=== PATIENT | male | born 1995 | race Caucasian/White ===

== ENCOUNTER 2023-01-27 23:51 | Inpatient (IN) | payer BC, OTHER ==
[~2023-01-27] VITALS: Ht 177.8 cm; Wt 99.2 kg
[2023-01-28] VITALS (7 sets, daily range): BP systolic 95–117; BP diastolic 43–68; PULSE 64–72; RESP 12–20; TEMP 97.3–97.7; O2SAT 91–98
[2023-01-28 00:54] LABS: Urine Bacteria NONE SEEN /hpf (None Seen); Urine Blood Negative /uL (Negative); Urine Clarity Clear (Clear); Urine Color Yellow (Yellow); Urine Protein, UAD Negative (Negative); Urine Urobilinogen Normal (Negative); Urine WBC <1 /hpf (0 - 3)
[2023-01-28 01:07] LABS: Basophils # (auto) 0 10 ^3/uL (0-0.2); Basophils % (auto) 0.2 % (0.0-2.0); Eosinophils # (auto) 0 10 ^3/uL (0-0.8); Eosinophils % (auto) 0.1 % (0.0-7.0); Hematocrit 45.1 % (41.0-53.0); Hemoglobin 15.4 g/dL (13.5-17.5); Lymphocytes % (auto) 15.4 % (10.0-50.0); Mean Corpuscular Hemoglobin 29.3 pg (28.0-32.0); Mean Corpuscular Hgb Conc. 34.2 g/dL (32.0-36.0); Mean Corpuscular Volume 85.7 fL (80.0-100.0); Monocytes # (auto) 0.6 10 ^3/uL (0-1.3); Monocytes % (auto) 8.3 % (0.0-12.0); Neutrophils # (auto) 5.1 10 ^3/uL (1.6-8.6); Nucleated Red Blood Cells % 0.1 %; Red Blood Cells 5.26 10^6/uL (4.5-5.90); White Blood Cell 6.7 10^3/uL (4.4-10.8)
[2023-01-28 01:23] LABS: Alanine Aminotransferase 23 U/L (7-40); Albumin 4.7 g/dL (3.2-4.8); Alkaline Phosphatase 66 U/L (46-116); Anion Gap 4.9 (5-15); Aspartate Aminotransferase 22 U/L (13-40); Blood Urea Nitrogen 10 mg/dL (9-23); Calcium 9.5 mg/dL (8.7-10.4); Carbon Dioxide 29.1 mmol/L (20-30); Chloride 102 mmol/L (98-107); Glucose 115 mg/dL (74-106); Lipase 45 U/L (12-53); Potassium 3.7 mmol/L (3.5-5.1); Sodium 136 mmol/L (136-145)
[2023-01-28 01:24] LABS: Bilirubin, Total 0.9 mg/dL (0.2-1.0); Total Protein 7.5 g/dL (5.7-8.2)
[2023-01-28] MEDS ORDERED: SODIUM CHLORIDE 0.9% 1,000 ML IVB ONE (01:30)
[2023-01-28] MEDS ORDERED: PIPERACILLIN-TAZOB 3.375GM 100 ML IV ONE (01:30)
[2023-01-28] MEDS: ONDANSETRON HCL 4 MG/2 ML VIAL IV ONE ×2 (01:36→03:40)
[2023-01-28] MEDS: MORPHINE SULFATE 4 MG/ML SYR/VIAL IV ONE ×2 (01:36→03:39)
[2023-01-28 01:42] LABS: INR 1.1 (0.9-1.15); Partial Thromboplastin Time 28.4 SEC (24.5-34.5); Prothrombin Time 11.5 sec (9.3-11.8)
[2023-01-28] MEDS ORDERED: PANTOPRAZOLE 40 MG/10 ML VIAL INJ IV ONE (03:00)
[2023-01-28] MEDS ORDERED: LIDOCAINE W/ EPINEPHRINE 1% 20ML VIAL ONE (08:48)
[2023-01-28] MEDS ORDERED: BUPIVACAINE 0.25% INJ 50ML VIAL ONE (08:48)
[2023-01-28] MEDS ORDERED: CELECOXIB 100 MG CAP PO ONE (09:00)
[2023-01-28] MEDS ORDERED: ACETAMINOPHEN IV 1000 MG/100ML (10MG/ML) IV ONE (09:00)
[2023-01-28] MEDS ORDERED: GABAPENTIN 300 MG CAP PO ONE (09:00)
[2023-01-28] MEDS ORDERED: GLYCOPYRROLATE 0.2 MG/ML 1ML VIAL ONE (09:03)
[2023-01-28] MEDS ORDERED: ROCURONIUM 10MG/ML 10ML VIAL IV ONE (09:03)
[2023-01-28] MEDS ORDERED: PROPOFOL 10 MG/ML 20 ML IV ONE (09:04)
[2023-01-28] MEDS ORDERED: LIDOCAINE 2% (LOCAL ANESTH.) PF 5ml SDV ONE (09:04)
[2023-01-28] MEDS ORDERED: ONDANSETRON HCL 4 MG/2 ML VIAL ONE (09:04)
[2023-01-28] MEDS ORDERED: DexAMETHasone SOD PHOS 10MG/1ML VIAL INJ ONE (09:04)
[2023-01-28] MEDS ORDERED: KETOROLAC TROMETH 30 MG/ML 1ML VIAL ONE (09:04)
[2023-01-28] MEDS ORDERED: fentaNYL CITRATE 100 MCG/2 ML VL ONE (09:05)
[2023-01-28] MEDS ORDERED: SUGAMMADEX 200mg/2ml Vial (100MG/ML) IV ONE (09:05)
[2023-01-28] MEDS ORDERED: CELECOXIB 100 MG CAP ONE (09:09)
[2023-01-28] MEDS ORDERED: ACETAMINOPHEN IV 100 ML IV ONE (09:09)
[2023-01-28] MEDS ORDERED: GABAPENTIN 300 MG CAP ONE (09:09)
[2023-01-28] MEDS ORDERED: metroNIDAZOLE 500MG/100ML 100 ML IV ONE ×2 (09:25→10:15)
[2023-01-28] MEDS ORDERED: ceFAZolin 2 GM/D5W100ml 100 ML IV ONE (10:15)
[2023-01-28] MEDS ORDERED: MORPHINE SULFATE INJ 2 MG/ml SYRG IM ONE (10:15)
[2023-01-28] MEDS ORDERED: D5W/SOD CHL 0.45%/KCL 20MEQ 1,000 ML IV ONE (10:15)
[2023-01-28] MEDS ORDERED: HYDROmorphone HCL 2 MG/ML VL/or syr IV PRN (10:45)
[2023-01-28] MEDS ORDERED: hydrALAZINE HCL 20 MG/ML VL IV PRN (10:45)
[2023-01-28] MEDS ORDERED: ONDANSETRON HCL 4 MG/2 ML VIAL IV PRN (10:45)
[2023-01-28] MEDS ORDERED: FLUMAZENIL 0.1 MG/ML INJ 10ML MDV IV PRN (10:45)
[2023-01-28] MEDS ORDERED: NALOXONE HCL 0.4 MG/ML VIAL IV PRN (10:45)
[2023-01-28] MEDS ORDERED: oxyCODONE HCL 5MG TAB PO PRN (10:45)
[2023-01-28] MEDS ORDERED: ePHEDrine SULFATE 50 MG/ML AMP IV PRN (10:45)
[2023-01-28] MEDS ORDERED: LABETALOL HCL 5 MG/ML 4ML SYRINGE IV PRN (10:45)
[2023-01-28] MEDS ORDERED: fentaNYL CITRATE 100 MCG/2 ML VL IV PRN (10:45)
[2023-01-28] MEDS ORDERED: ACETAMINOPHEN 500 MG TAB PO PRN (14:00)
[2023-01-28] MEDS ORDERED: SODIUM CHLORIDE 0.9% 1,000 ML IV ONE (14:00)
[2023-01-28] MEDS ORDERED: MORPHINE SULFATE INJ 2 MG/ml SYRG IV PRN (14:00)
[2023-01-28] MEDS: metroNIDAZOLE 500MG/100ML 100 ML IV SCH ×2 (14:00→22:07)
[2023-01-28] MEDS ORDERED: HYDROcodone-ACET 5/325MG TAB PO PRN (14:00)
[2023-01-28] MEDS ORDERED: LANS30CA58 PO (14:37)
[2023-01-29 05:00] VITALS: BP 97/40; PULSE 53; RESP 18; TEMP 97.9; O2SAT 92
[2023-01-29] MEDS: metroNIDAZOLE 500MG/100ML 100 ML IV SCH (05:30)
[2023-01-29 07:43] LABS: Basophils # (auto) 0 10 ^3/uL (0-0.2); Basophils % (auto) 0.2 % (0.0-2.0); Eosinophils # (auto) 0 10 ^3/uL (0-0.8); Hematocrit 37.8 % (41.0-53.0); Hemoglobin 13.3 g/dL (13.5-17.5); Lymphocytes # (auto) 1.1 10 ^3/uL (0.4-5.4); Lymphocytes % (auto) 13.6 % (10.0-50.0); Mean Corpuscular Hemoglobin 29.7 pg (28.0-32.0); Mean Corpuscular Hgb Conc. 35.1 g/dL (32.0-36.0); Mean Corpuscular Volume 84.6 fL (80.0-100.0); Monocytes # (auto) 0.8 10 ^3/uL (0-1.3); Monocytes % (auto) 10.2 % (0.0-12.0); Neutrophils # (auto) 6.2 10 ^3/uL (1.6-8.6); Nucleated Red Blood Cells % 0.1 %; Red Blood Cells 4.47 10^6/uL (4.5-5.90); Red Cell Distribution Width 13.2 % (11.8-14.3); White Blood Cell 8.2 10^3/uL (4.4-10.8)
[2023-01-29 08:34] VITALS: BP 110/62; PULSE 63; RESP 16; TEMP 97.8; O2SAT 95
[2023-01-29] MEDS ORDERED: cefTRIAXone 1GM/50ML D5W 50 ML IV SCH (09:00)
[2023-01-29] MEDS ORDERED: CEPH500T PO (10:56)
[2023-01-29] MEDS ORDERED: DOCU-94 PO (10:56)
[2023-01-29] MEDS ORDERED: TRAM50TA2 PO (10:56)
[2023-01-29 11:12] LABS: Chloride 107 mmol/L (98-107); Potassium 4.2 mmol/L (3.5-5.1); Sodium 139 mmol/L (136-145)
[2023-01-29 11:13] LABS: Anion Gap 6.5 (5-15); Carbon Dioxide 25.5 mmol/L (20-30)
[2023-01-29 11:14] LABS: Calcium 8.9 mg/dL (8.5-10.1)
[2023-01-29 11:18] LABS: BUN/Creatinine Ratio 8.3 (10.0-20.0); Blood Urea Nitrogen 9 mg/dL (9-23); Glucose 107 mg/dL (74-106)
[2023-01-29 11:29] VITALS: TEMP 36.6
[2023-01-29 12:34] VITALS: BP 109/68; PULSE 69; RESP 17; TEMP 98.3; O2SAT 96
== END 2023-01-29 12:40 | disposition home or self-care (01) | DRG 341 ==
LOC: ER 01-28 00:05 → OVERFLOW 01-28 13:54 → EAST 01-28 14:15
PROVIDERS: ADMIT Internal Medicine; ATTEND Internal Medicine
PROC: 0DTJ4ZZ Resection of Appendix, Percutaneous Endoscopic Approach (ICD-10-PCS; principal; 2023-01-28 09:28)
DX: K35.80 Unspecified acute appendicitis (principal); N17.0 Acute kidney failure with tubular necrosis; E66.9 Obesity, unspecified; Z68.31 Body mass index [BMI] 31.0-31.9, adult
CPT/HCPCS: 36415; 74177; 80048; 80053; 81001; 83690; 85025; 85610; 85730; 86850; 86900; 86901; 96365; 96366; 96375; C9113; G0378; J0131; J0696; J1100; J1885; J2001; J2405; J2543; J2704; J3490